=== PATIENT | female | born 1980 | race Asian ===

== ENCOUNTER 2025-04-17 14:24 | Outpatient (CLI) | payer OTHER | END 2025-04-17 14:25 | disposition home or self-care (01) | LOC: CSHMAMMO 14:24 | PROVIDERS: ATTEND Family Medicine | DX: Z12.31 Encounter for screening mammogram for malignant neoplasm of breast (principal); Z80.3 Family history of malignant neoplasm of breast; Z98.82 Breast implant status | CPT/HCPCS: 77063; 77067 ==